=== PATIENT | female | born 1945 | race Caucasian/White ===

== ENCOUNTER 2016-06-07 18:45 | Emergency (ER) | payer MEDICARE, BC ==
[2016-06-07 19:37] LABS: #Basophils 0.1 thou/uL (0.0-0.2); #Eosinphils 0.1 thou/uL (0.0-0.7); #Lymphocytes 1.9 thou/uL (1.20-3.40); #Monocytes 0.7 thou/uL (0.11-0.59); %Basophils 0.9 % (0.0-1.0); %Eosinophils 0.9 % (0.0-10.0); %Lymphocytes 21.8 % (21.0-51.0); %Monocytes 8.1 % (0.0-10.0); %Neutrophils 68.3 % (42.0-75.0); Hemoglobin 15.1 g/dL (12.0-16.0); Mean Corpuscular HGB CONC 33.9 g/dL (32.0-36.0); Mean Corpuscular Volume 97.3 fl (81.0-99.0); Mean Platelet Volume 6.1 fL (7.4-10.4); Platelet Count 268 thou/uL (130-400); Red Blood Cell (RBC) Count 4.56 mill/uL (4.20-5.40); White Blood Cell (WBC) Count 8.8 thou/uL (4.8-10.8)
[2016-06-07 19:56] LABS: ALT (SGPT) 17 U/L (0-55); AST (SGOT) 23 U/L (5-34); Albumin 4.7 g/dL (3.4-4.8); Alkaline Phosphatase 82 U/L (40-150); Anion Gap 15 mmol/L (10-20); BUN (Urea Nitrogen) 29 mg/dL (9.8-20.1); Bilirubin, Total 0.5 mg/dL (0.2-1.2); Calc. Creatinine Clearance 0 mL/min (70-130); Calcium 9.8 mg/dL (7.8-10.44); Carbon Dioxide 26 mmol/L (23-31); Chloride 101 mmol/L (98-107); Estimated GFR-MDRD 36; Globulin 3.3 g/dL (2.4-3.5); Glucose 112 mg/dL (80-115); Lipase 52 U/L (8-78); Potassium 4.3 mmol/L (3.5-5.1); Sodium 138 mmol/L (136-145)
[2016-06-07 20:03] LABS: CKMB 2.6 ng/mL (0-6.6); Troponin I Less than 0.010 ng/mL (< 0.028)
[2016-06-07] MEDS ORDERED: Promethazine HCl 25 MG/ML VIAL ONE (20:05)
--- NOTE | 2016-06-07 20:38 | CT ---
CT ABDOMEN AND PELVIS WITHOUT IV CONTRAST: 06/07/16 Multiple axial tomograms are obtained through the abdomen and pelvis without IV enhancement. Oral co ntrast was not given. HISTORY: Nausea, vomiting and abdominal pain. History of polycystic kidneys. Surgical history includes cholec ystectomy and hysterectomy. FINDINGS: The lung bases are clear. The liver, spleen and pancreas are unremarkable. Adrenal glands are unremarkable. There are numerous bilateral renal cystic lesions consistent with a history of polycystic kidneys. S everal of these cystic lesions are complex with some internal septations with calcification. There i s no evidence of hydronephrosis. Small bowel loops are normal caliber. Colon appears unremarkable. Aorta is normal caliber. No adenop athy identified. Postoperative changes in the spine. IMPRESSION: 1. Changes of polycystic kidneys with several complex cystic lesions. 2. No acute intra-abdominal process identified. POS: [facility]
== END 2016-06-07 20:55 | disposition home or self-care (01) ==
LOC: BURERS 18:45
DX: R11.2 Nausea with vomiting, unspecified (principal); I10 Essential (primary) hypertension; F32.9 Major depressive disorder, single episode, unspecified; F41.9 Anxiety disorder, unspecified; Z87.891 Personal history of nicotine dependence; Z79.899 Other long term (current) drug therapy
CPT/HCPCS: 36415; 74176; 80053; 82553; 83605; 83690; 84484; 85025; 93005; 96360; 96372; J2550

== ENCOUNTER 2016-11-10 16:11 | Outpatient (CLI) | payer MEDICARE, BC ==
[2016-11-10 16:20] LABS: #Basophils 0.1 thou/uL (0.0-0.2); #Eosinphils 0.1 thou/uL (0.0-0.7); #Lymphocytes 1.4 thou/uL (1.20-3.40); #Monocytes 0.6 thou/uL (0.11-0.59); #Neutrophils 6.6 thou/uL (1.40-6.50); %Eosinophils 1.4 % (0.0-10.0); %Lymphocytes 16.1 % (21.0-51.0); %Monocytes 6.5 % (0.0-10.0); %Neutrophils 75.2 % (42.0-75.0); Hemoglobin 13.1 g/dL (12.0-16.0); Mean Corpuscular HGB CONC 32.4 g/dL (32.0-36.0); Mean Corpuscular Hemoglobin 28.5 pg (27.0-31.0); Mean Corpuscular Volume 87.9 fl (81.0-99.0); Mean Platelet Volume 5.8 fL (7.4-10.4); Platelet Count 238 thou/uL (130-400); RBC Distribution Width 13.4 % (11.5-14.5); Red Blood Cell (RBC) Count 4.61 mill/uL (4.20-5.40); White Blood Cell (WBC) Count 8.7 thou/uL (4.8-10.8)
[2016-11-10 16:47] LABS: ALT (SGPT) 16 U/L (8-55); AST (SGOT) 23 U/L (5-34); Albumin 4.4 g/dL (3.4-4.8); Alkaline Phosphatase 79 U/L (40-150); Anion Gap 15 mmol/L (10-20); BUN (Urea Nitrogen) 25 mg/dL (9.8-20.1); Bilirubin, Total 0.6 mg/dL (0.2-1.2); Calc. Creatinine Clearance 0 mL/min (70-130); Calcium 9.8 mg/dL (7.8-10.44); Carbon Dioxide 27 mmol/L (23-31); Chloride 103 mmol/L (98-107); Estimated GFR-MDRD 42; Globulin 3.1 g/dL (2.4-3.5); Glucose 105 mg/dL (80-115); Potassium 4.4 mmol/L (3.5-5.1); Protein, Total 7.5 g/dL (6.0-8.3); Sodium 141 mmol/L (136-145); Uric Acid 7.1 mg/dL (2.6-6.0)
== END 2016-11-10 16:12 | disposition home or self-care (01) ==
LOC: HPCALD 16:11
PROVIDERS: ATTEND Family Medicine
DX: M79.674 Pain in right toe(s) (principal); R55 Syncope and collapse
CPT/HCPCS: 36415; 80053; 84443; 84550; 85025

== ENCOUNTER 2016-12-24 15:25 | Outpatient (CLI) | payer MEDICARE, BC ==
--- NOTE | 2016-12-24 22:59 | RAD ---
ACUTE ABDOMEN SERIES 12/24/16 Supine and erect films show no free air beneath the diaphragm. The gas pattern is normal. There is n o distended bowel to suggest obstruction. No important calcifications were noted. Clips are noted in the right upper quadrant from a prior surgical procedure. There has been extensive fusion of the abbey mbar spine along with laminectomies. A single view of the chest shows a normal sized heart and clear lungs. IMPRESSION: No acute abdominal findings. POS: [facility]
--- NOTE | 2016-12-25 00:15 | ULT ---
BILATERAL LOWER EXTREMITY VENOUS ULTRASOUND 12/24/16 Ultrasonography of the deep veins of each lower extremity was performed. No echogenic clot was seen on either side. All deep veins were freely compressible from groin to ankle. There was normal dopple r responses to augmentation maneuvers, thus, there is no sign of DVT on either side. A cyst is seen in the right popliteal region measuring 3.5 x 1.0 x 3.8 cm. In the left popliteal reg ion, there was an oblong hypoechoic density measuring 4.5 x 0.9 x 1.6 cm. While it physically somewh at resembled a lymph node, the size and location leads me to belief it is a debris filled Mondragon's cy [address]. IMPRESSION: 1. No evidence of DVT on either side. 2. 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 POS: [facility]
== END 2016-12-24 15:26 | disposition home or self-care (01) ==
LOC: BURCT 15:25 → BURULT 15:26
PROVIDERS: ATTEND Family Medicine
DX: Z01.812 Encounter for preprocedural laboratory examination (principal); R79.89 Other specified abnormal findings of blood chemistry; R06.09 Other forms of dyspnea; R10.84 Generalized abdominal pain; M71.21 Synovial cyst of popliteal space [Baker], right knee
CPT/HCPCS: 36415; 74022; 82565; 93970

== ENCOUNTER 2017-03-23 15:51 | Emergency (ER) | payer MEDICARE, BC ==
[2017-03-23 16:45] LABS: ALT (SGPT) 14 U/L (8-55); AST (SGOT) 16 U/L (5-34); Alkaline Phosphatase 92 U/L (40-150); Anion Gap 19 mmol/L (10-20); BUN (Urea Nitrogen) 40 mg/dL (9.8-20.1); Bilirubin, Total 0.6 mg/dL (0.2-1.2); Calc. Creatinine Clearance 0 mL/min (70-130); Calcium 10.1 mg/dL (7.8-10.44); Carbon Dioxide 25 mmol/L (23-31); Chloride 94 mmol/L (98-107); Estimated GFR-MDRD 30; Globulin 3.9 g/dL (2.4-3.5); Glucose 164 mg/dL (80-115); Lipase 16 U/L (8-78); Potassium 3.7 mmol/L (3.5-5.1); Protein, Total 7.9 g/dL (6.0-8.3); Sodium 134 mmol/L (136-145)
[2017-03-23 16:46] LABS: #Lymphocytes 0.4 thou/uL (1.20-3.40); #Monocytes 0.9 thou/uL (0.11-0.59); #Neutrophils 8.7 thou/uL (1.40-6.50); %Basophils 0.3 % (0.0-1.0); %Lymphocytes 4.2 % (21.0-51.0); %Monocytes 9.2 % (0.0-10.0); %Neutrophils 86.3 % (42.0-75.0); Band 3 % (5-11); CKMB 0.5 ng/mL (0-6.6); Hemoglobin 11.7 g/dL (12.0-16.0); Lymphocytes 4 % (21-51); MDiff Complete? YES; Mean Corpuscular HGB CONC 34.5 g/dL (32.0-36.0); Mean Corpuscular Hemoglobin 28.4 pg (27.0-31.0); Mean Corpuscular Volume 82.3 fl (81.0-99.0); Mean Platelet Volume 5.1 fL (7.4-10.4); Monocytes 10 % (0-10); Neutrophil 82 % (42-75); Platelet Count 178 thou/uL (130-400); RBC Distribution Width 13.6 % (11.5-14.5); Red Blood Cell (RBC) Count 4.11 mill/uL (4.20-5.40); Troponin I 0.016 ng/mL (< 0.028); White Blood Cell (WBC) Count 10.1 thou/uL (4.8-10.8)
== END 2017-03-23 17:00 | disposition home or self-care (01) ==
LOC: BURERS 15:51
DX: B34.9 Viral infection, unspecified (principal); G47.00 Insomnia, unspecified; I10 Essential (primary) hypertension; F41.9 Anxiety disorder, unspecified; F32.9 Major depressive disorder, single episode, unspecified; Z87.891 Personal history of nicotine dependence
CPT/HCPCS: 80053; 82553; 83690; 84484; 85025; 93005; 96360

== ENCOUNTER 2017-04-28 15:12 | Outpatient (CLI) | payer MEDICARE, BC ==
--- NOTE | 2017-04-28 21:56 | RAD ---
CHEST TWO VIEWS 04/28/17 Comparison is made with the 12/24/16 study. The heart is normal in size. there is no vascular congestion edema or pleural effusion. No major loba r infiltrate was seen. There is a little bit of retrocardiac streaking. It may or may not be signific ant. Mild degenerative changes are seen in the spine. IMPRESSION: No definite acute findings. Minimal retrocardiac streaking. POS: [facility]
== END 2017-04-28 15:13 | disposition home or self-care (01) ==
LOC: BURRAD 15:12
PROVIDERS: ATTEND Family Medicine
DX: R06.00 Dyspnea, unspecified (principal)
CPT/HCPCS: 71046

== ENCOUNTER 2017-12-04 17:54 | Emergency (ER) | payer MEDICARE, BC ==
--- NOTE | 2017-12-04 19:40 | CT ---
CT OF BRAIN PERFORMED WITHOUT CONTRAST ENHANCEMENT: 12/04/17 HISTORY: Head trauma. COMPARISON: 04/18/17 exam. There is some mild generalized ventricular and sulcal prominence. There is no signs of intracerebral hemorrhage or extra-axial fluid collections. Mastoid air cells are clear. There is bilateral maxillar y sinus mucosal disease, worse on the right. IMPRESSION: No acute intracranial abnormalities. POS: [facility]
--- NOTE | 2017-12-04 20:36 | CT ---
CT OF CERVICAL SPINE PERFORMED WITHOUT CONTRAST ENHANCEMENT: HISTORY: Head and neck injury. COMPARISON: A plain film examination of 12/26/15. The vertebral bodies are normal in height. Minimal disc narrowing at C4-5 is noted. There is a promin ent anterolisthesis of C4 on C5 of approximately 4 mm. There is a minimal anterolisthesis of C3 on C4 and C5 on C6. Changes were present on the previous exam and appear to be related to marked degenerat lakisha facet changes. The facets do appear to be in normal alignment. There is no CT evidence for fractu re. No central canal stenosis is demonstrated. The lung apices show some emphysematous type change. IMPRESSION: No CT evidence of fracture of the cervical spine. POS: [facility]
== END 2017-12-04 19:10 | disposition home or self-care (01) ==
LOC: BURERS 17:54
DX: S09.90XA Unspecified injury of head, initial encounter (principal); I10 Essential (primary) hypertension; F41.9 Anxiety disorder, unspecified; F32.9 Major depressive disorder, single episode, unspecified; Z87.891 Personal history of nicotine dependence; W22.8XXA Striking against or struck by other objects, initial encounter
CPT/HCPCS: 70450; 72125

== ENCOUNTER 2018-09-08 18:19 | Emergency (ER) | payer MEDICARE, BC ==
[2018-09-08] MEDS ORDERED: Albuterol Sulfate 1.25 MG/3 ML NEB ONE (18:59)
[2018-09-08] MEDS ORDERED: Azithromycin 250 MG TAB ONE (19:00)
[2018-09-08] MEDS ORDERED: Piperacillin/Tazobactam 4.5 GM VIAL ONE (19:00)
[2018-09-08 19:04] LABS: #Basophils 0.1 thou/uL (0.0-0.2); #Eosinphils 0.6 thou/uL (0.0-0.7); #Lymphocytes 0.8 thou/uL (1.20-3.40); #Monocytes 0.6 thou/uL (0.11-0.59); %Basophils 0.6 % (0.0-1.0); %Eosinophils 5.4 % (0.0-10.0); %Lymphocytes 7.2 % (21.0-51.0); %Monocytes 5.7 % (0.0-10.0); %Neutrophils 81.1 % (42.0-75.0); Hemoglobin 14.5 g/dL (12.0-16.0); Mean Corpuscular HGB CONC 32.7 g/dL (32.0-36.0); Mean Corpuscular Hemoglobin 27.9 pg (27.0-31.0); Mean Corpuscular Volume 85.3 fL (78.0-98.0); Mean Platelet Volume 6.1 fL (7.4-10.4); Platelet Count 366 thou/uL (130-400); RBC Distribution Width 12.7 % (11.5-14.5); Red Blood Cell (RBC) Count 5.22 mill/uL (4.20-5.40); White Blood Cell (WBC) Count 11.1 thou/uL (4.8-10.8)
[2018-09-08 19:10] LABS: ALT (SGPT) 26 U/L (8-55); AST (SGOT) 31 U/L (5-34); Albumin 3.5 g/dL (3.4-4.8); Alkaline Phosphatase 109 U/L (40-150); Anion Gap 18 mmol/L (10-20); BUN (Urea Nitrogen) 60 mg/dL (9.8-20.1); Bilirubin, Total 0.5 mg/dL (0.2-1.2); Calc. Creatinine Clearance 0 mL/min (70-130); Calcium 10.6 mg/dL (7.8-10.44); Carbon Dioxide 23 mmol/L (23-31); Chloride 100 mmol/L (98-107); Estimated GFR-MDRD 25; Globulin 4.5 g/dL (2.4-3.5); Glucose 138 mg/dL (83-110); Potassium 4.9 mmol/L (3.5-5.1); Sodium 136 mmol/L (136-145)
[2018-09-08] MEDS ORDERED: Aspirin Chewable 81 MG TAB ONE (19:51)
[2018-09-08] MEDS ORDERED: Enoxaparin Sodium 100 MG/ML SYRINGE ONE (19:51)
[2018-09-08 22:05] LABS: Bilirubin Negative (Negative); Blood, Urine Negative (Negative); Clarity Clear (Clear); Glucose, Urine (Dipstick) Negative (Negative); Leukocyte Small (Negative); Nitrite Negative (Negative); Protein, Urine (Dipstick) 30 mg/dL (Neg-Trace); Urobilinogen 0.2 mg/dL (Less than 2)
[2018-09-08 22:09] LABS: Bacteria/HPF 1+ HPF (None Seen); RBC/HPF 0-3 HPF (0-3); Renal Epithelial 0-3 HPF (None Seen); Squamous Epithelial 0-3 HPF (0-3)
--- NOTE | 2018-09-08 23:32 | RAD ---
PORTABLE CHEST: 09/08/18 An AP portable film at 1853 is compared with the prior study of 04/28/17. Diffuse interstitial infiltrates are present in the lungs. I am presuming this to be pulmonary edema, though the cardiac size is not really large. There are no large effusions, though small ones could b e present. The mediastinum shows no widening. IMPRESSION: Diffuse interstitial prominence. Presumably edema, though interstitial infections could potentially be a consideration too. POS: [facility]
== END 2018-09-08 23:00 | disposition home or self-care (01) ==
LOC: BURERS 18:19
DX: A41.9 Sepsis, unspecified organism (principal); R65.20 Severe sepsis without septic shock; J18.9 Pneumonia, unspecified organism; N19 Unspecified kidney failure; R09.02 Hypoxemia; I10 Essential (primary) hypertension; F41.9 Anxiety disorder, unspecified; F32.9 Major depressive disorder, single episode, unspecified; Z87.891 Personal history of nicotine dependence
CPT/HCPCS: 71045; 80053; 81003; 81015; 83605; 83880; 84484; 85025; 85379; 87040; 93005; 94640; 94760; 96361; 96365; 96372; J1650; J2543; J7620